=== PATIENT | female | born 1980 | race Caucasian/White ===

== ENCOUNTER 2016-10-02 14:58 | Observation (INO) | payer MEDICAID, SELFPAY ==
[2016-10-02 15:15] VITALS: BMI 17.8
--- NOTE | 2016-10-02 15:19 | EKG12_ITS ---
Test Reason : Blood Pressure : / mmHG Vent. Rate : 064 BPM Atrial Rate : 064 BPM P-R Int : 150 ms QRS Dur : 088 ms QT Int : 400 ms P-R-T Axes : 069 009 047 degrees QTc Int : 412 ms Normal sinus rhythm with sinus arrhythmia Normal ECG Confirmed by ERICA BRANDON, JOSÉ MIGUEL ([id number]), technical writer and editor ALESHIA ADRIAN ([id number]) on 10/11/2016 3:50:40 PM Referred By: KAREN Confirmed By:JOSÉ MIGUEL MALDONADO MD
[2016-10-02 15:21] VITALS: BMI 17.8
[2016-10-02 15:27] VITALS: BP 103/54; PULSE 66; RESP 18; TEMP 36.8
[2016-10-02] MEDS: cloNIDine HCl 0.1 MG Tablet PO ×3 (15:52→23:43)
[2016-10-02] MEDS: Dicyclomine 10 MG Capsule 20 MG PO ×2 (15:52→23:43)
[2016-10-02] MEDS: Buprenorphine HCl 2 MG TAB.SUBL SL ×2 (15:53→23:43)
[2016-10-02 16:10] LABS: Hematocrit 38.2 % (37-47); Hemoglobin 12.9 g/dl (12.0-15.0); Mean Corp Hgb Conc 33.8 g/gl (32-36); Mean Corpuscular Hgb 33.2 pg (27.0-32.0); Mean Corpuscular Volume 98.5 fL (81-99); Mean Platelet Vol. 12.4 fl (6.2-12.0); Platelet Count 152 K/mm3 (150-450); RBC Distribution Width CV 13.1 % (11.6-14.6); Red Blood Count 3.88 M/mm3 (4.2-5.4); White Blood Count 6.2 K/mm3 (4.4-11.0)
[2016-10-02 16:22] LABS: Scan Indicated on CBC? Y/N NO
[2016-10-02 16:25] VITALS: O2SAT 97
--- NOTE | 2016-10-02 16:33 | HP.PCM_ITS ---
History of Present Illness Date of Admission: 10/02/16 Chief Complaint: Acute opiate withdrawal The patient is a 36 year old female was referred from [facility] for acute opiate withdrawal. Patient reports muscle aches, fever/chills, nausea/diarrhea, no vomiting at this point. Overall feels very uncomfortable and jittery. Last dose of heroin IV-yesterday. Long-term heroin user. Reports mild headache, no shortness of breath, denies urinary complaints, no neuro complaints. Past medical history. Endometriosis. IBS with diarrhea. Migraines. Social history. Independent in her daily activities. Long-term heroin user. Smokes marijuana. He used to use cocaine-last time more than 10 years ago. Denies use of alcohol. Smokes about 1.5 packs per day. Family history. Not relevant to current presentation. Number Past Medical History Allergies No Known Allergies Allergy (Verified 10/02/16 15:38) Smoking Status: Current every day smoker . - As above Review of Systems Constitutional: Reports: Chills, Fever, Malaise, Weakness, Fatigue. Denies: Anorexia Eyes: Denies: Vision Change HEENT: Denies: Visual Changes Cardiovascular: Denies: Chest Pain, Chest Pressure, Chest Tightness, Edema, Light Headedness, Palpitations, Syncope Respiratory: Denies: Cough, Shortness of Breath, Wheezing Gastrointestinal: Reports: Abdominal Pain - Abdominal cramps, pain all over, Diarrhea, Nausea. Denies: Constipation, Dyspepsia, Hematemesis, Hematochezia, Melena, Vomiting Genitourinary: Denies: Dysuria, Hematuria, Hesitancy, Incontinence, Retention, Urgency Gynecological: Denies: Vaginal discharge, Vaginal itching Musculoskeletal: Reports: Joint Pain - All over, Muscle pain - All over. Denies : Joint stiffness, Joint swelling Skin: Denies: Dryness, Jaundice, Lesions Neurological: Denies: Balance problems, Blurred vision, Change in Speech, Slurred speech, Confusion, Difficulty swallowing, Focal weakness, Headaches, Incoordination, Numbness, Tingling, Tremor, Seizures Psychiatric: Denies: Anxiety, Depression, Suicidal Ideations Endocrine: Denies: Change in Body Habitus Hematologic/ Lymphatic: Denies: Adenopathy, Anemia, Easy Bruising, Hx of blood clot VTE Information - Inpt Only VTE Present on Admission: No Objective: General: Patient is sitting in bed. Awake, alert, oriented ?3. HEENT: Atraumatic, Normocephalic. Clear conjunctiva. Oral mucosa is moist. Neck: No nodules noted, no asymmetry. PERRLA. Skin: Clean, dry. No visible rashes. Noted tracks after having injections. No signs of ongoing infection. Lungs: clear to auscultation bilaterally. No wheezing. CVS: S1-S2 present, no murmurs appreciated, regular rate, good radial pulses. Abdomen: Soft, nontender, nondistended, bowel sounds present. No CVA tenderness. Extremities: No clubbing, No cyanosis. No visible deformities. No lower extremity edema. Psych/Mental Status: Appropriate and cooperative, noted that patient is somewhat jittery and anxious. Neuro: No focal neurological findings. - Physical Exam Vital Signs Temp Pulse Resp BP Pulse Ox 36.8 C 66 18 103/54 10/02/16 15:27 10/02/16 15:27 10/02/16 15:27 10/02/16 15:27 Oxygen Delivery Method Room Air Weight: 54.8 kg Body Mass Index (BMI) 17.8 Laboratory Tests Past 24 Hrs 10/02/16 10/02/16 15:40 15:40 WBC 6.2 RBC 3.88 L Hgb 12.9 Hct 38.2 MCV 98.5 MCH 33.2 H MCHC 33.8 RDW 13.1 RDW Differential 46.0 H Plt Count 152 MPV 12.4 H Sodium Pending Potassium Pending Chloride Pending Carbon Dioxide Pending Anion Gap Pending BUN Pending Creatinine Pending Est GFR (MDRD) Af Amer Pending Est GFR (MDRD) Non-Af Pending BUN/Creatinine Ratio Pending Glucose Pending Calcium Pending Assessment/Plan * Acute opiate withdrawal. Started on Buprenex withdrawal protocol. * Nicotine use disorder. Counseled on smoking cessation, nicotine replacement therapy with patch. * Polysubstance abuse. Patient does have arranged counseling as outpatient upon discharge. * DVT prophylaxis-patient is young female with low risk, recommended ambulation and knee/ankle exercises. Dragon Dictation.
[2016-10-02 16:34] LABS: Anion Gap 5 (5-15); BUN 6 mg/dL (7-18); BUN/Creat Ratio 9.1 RATIO (10-20); Calcium,Total 8.9 mg/dL (8.5-10.1); Chloride 107 mmol/L (98-107); Creatinine, Serum 0.66 mg/dL (0.55-1.02); EST Glomerular Filtration Rate 109 mL/min (>60); Est Glom Filt Rate - Afr Amer 132 mL/min (>60); Glucose 90 mg/dL (70-110); Potassium 3.5 mmol/L (3.5-5.1); Sodium Level 142 mmol/L (136-145)
[2016-10-02 20:15] VITALS: BP 99/56; PULSE 71; RESP 16; TEMP 36.9; O2SAT 97
[2016-10-02] MEDS: Methocarbamol 750 MG Tablet PO (20:30)
[2016-10-02 23:35] VITALS: BP 103/51; PULSE 74; RESP 16; TEMP 36.6
[2016-10-02 23:39] VITALS: O2SAT 98
[2016-10-03] VITALS (7 sets, daily range): BP systolic 84–103; BP diastolic 55–77; PULSE 74–90; RESP 16–18; TEMP 36.7–37.2; O2SAT 98–99
[2016-10-03] MEDS: cloNIDine HCl 0.1 MG Tablet PO ×7 (04:19→22:12)
[2016-10-03] MEDS: QUEtiapine 25 MG Tablet PO ×3 (04:19→19:01)
[2016-10-03] MEDS: Methocarbamol 750 MG Tablet PO ×3 (04:19→16:33)
[2016-10-03] MEDS: Dicyclomine 10 MG Capsule 20 MG PO ×3 (06:34→22:12)
[2016-10-03] MEDS: Buprenorphine HCl 2 MG TAB.SUBL SL ×2 (08:53→16:32)
[2016-10-03] MEDS: Pramipexole Di-HCl 0.125 MG Tablet PO ×2 (11:36→22:12)
--- NOTE | 2016-10-03 19:40 | PN_ITS ---
Subjective: Patient was seen and examined today, she is still having some diarrhea and some tremors, she is on a maximal amount of Bentyl that I can administer at this time , I cannot give her Imodium due to cross-reactivity with opiates, I explained this to her. Pepto-Bismol and Kaopectate is not available here. - Physical Exam General: Alert, Oriented x3, Cooperative, Well developed, Well nourished HEENT: Atraumatic, PERRLA, EOMI, Normocephalic Oral: Moist Mucosa Neck: Supple, No JVD, No Nuchal Rigidity, Trachea Midline, Thyroid Normal Size and Texture Lungs: Clear to auscultation, Normal air movement, No rhonchi, No wheeze, No rales Cardiovascular: Regular rate, Regular Rhythm, Normal S1, Normal S2, No murmurs, PMI Normal, No Gallop Abdomen: Bowel Sounds Present, Soft, Non Tender, Non-Distended Extremities: No clubbing, No cyanosis Skin: No rashes, No breakdown Neurological: Cranial nerves II-XII grossly intact, Neuro grossly intact, Sensory exam intact to light touch and pain, Coordination normal Psych/Mental Status: Flat Affect, Alert and oriented to time, place, person, mood and affect Vital Signs Temp Pulse Resp BP Pulse Ox 98.0 F 89 18 102/55 98 10/03/16 18:53 10/03/16 18:53 10/03/16 18:53 10/03/16 18:53 10/03/16 14:57 Oxygen Delivery Method Room Air Weight: 54.8 kg Body Mass Index (BMI) 17.8 Intake and Output for Last 24 Hours 10/01/16 10/02/16 10/03/16 23:59 23:59 23:59 Intake Total 100 950 Balance 100 950 Assessment/Plan #1 acute opiate withdrawal with diarrhea-continue Bentyl and medical stabilization program order set
[2016-10-03] MEDS: Acetaminophen 325 MG Tablet 650 MG PO (22:12)
[2016-10-04] MEDS: Buprenorphine HCl 2 MG TAB.SUBL SL ×3 (00:07→15:38)
[2016-10-04 05:30] VITALS: BP 94/51; PULSE 69; RESP 18; TEMP 36.5
[2016-10-04] MEDS: Methocarbamol 750 MG Tablet PO ×3 (05:34→22:54)
[2016-10-04] MEDS: Dicyclomine 10 MG Capsule 20 MG PO ×2 (05:34→22:54)
[2016-10-04] MEDS: Acetaminophen 325 MG Tablet 650 MG PO ×2 (05:34→22:54)
[2016-10-04] MEDS: QUEtiapine 25 MG Tablet PO ×2 (05:34→22:53)
[2016-10-04 07:30] VITALS: O2SAT 98
[2016-10-04 07:59] VITALS: BP 97/55; PULSE 65; RESP 18; TEMP 36.4
[2016-10-04] MEDS: Pramipexole Di-HCl 0.125 MG Tablet PO ×2 (08:10→22:53)
[2016-10-04] MEDS: cloNIDine HCl 0.1 MG Tablet PO ×2 (12:03→17:58)
--- NOTE | 2016-10-04 14:50 | NURSING ---
around noon pt given for prn meds for anxiety/sweating/and muscle aches-pt now asleep, will allow pt to rest and assess by 1600 when next dose of bup. due
--- NOTE | 2016-10-04 15:09 | CHAPLAIN ---
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; she shakes my hand and tells me that she and her boyfriend are users over last ten years; pt and her boyfriend are both in detox at this time but in different hospitals; pt is glad that they are doing this together at same time; pt says that other family do not support her or understand her addiction; pt also has a son of about 17 years old who does not live with her; pt says that she really wants to stop drugs and believes she can; pt says there is a plan in place for counseling when she is released; pt says that she does not have friends outside of boyfriend and does not have a job; pt speaks about finding a volunteer job at an animal care home as a good use of her time; she recognizes she says that she will need something to do to occupy her time; pt also agrees with suggestion that she would benefit from support from [employer] people in a mandaeism; pt said she attended mandaeism as a child and would like to do that again; pt is accepting of a prayer
[2016-10-04 15:35] VITALS: BP 91/63; PULSE 72; RESP 18; TEMP 36.6
[2016-10-04 15:36] VITALS: BP 91/63; PULSE 78; RESP 20; TEMP 36.6
[2016-10-04] MEDS: Ibuprofen 400 MG Tablet 800 MG PO (17:58)
[2016-10-04] MEDS: Loperamide 2 MG Capsule PO (17:58)
--- NOTE | 2016-10-04 18:13 | NURSING ---
pt experiencing anxiety and diarrhea-pt spoke with dr cordova, immodium, catapress and motrin given pt aware she still has other prn's available if this not helpful, there are other meds available, not to suffer in silence pt expresses anxiousness about recent argument on telephone who is withdrawaling at home, emotional support given she expressed family not very supportive and don't understand encouraged her to encourage family to attend support group meetings for families of addicts encouraged pt to follow through with therapy and be awre of triggers to use again living with someone that is still using heroin she expressed thanks for the conversation
--- NOTE | 2016-10-04 19:14 | PCM.PROGNOTE ---
Subjective: Patient was seen and examined today, she still having some diarrhea and I have decided to give her Imodium a.d. today. Patient also complains of some chronic back pain and I have decided to place her on 800 mg ibuprofen 3 times daily as needed. Patient still having some tremors but these are improved from yesterday. - Physical Exam General: Alert, Oriented x3, Cooperative, No apparent distress, Well developed, Well nourished HEENT: Atraumatic, PERRLA, EOMI, Normocephalic Oral: Moist Mucosa Neck: Supple, No JVD, Negative Carotid Bruits, No Nuchal Rigidity, Trachea Midline, Thyroid Normal Size and Texture Lungs: Clear to auscultation, Normal air movement, No rhonchi, No wheeze, No rales Cardiovascular: Regular rate, Regular Rhythm, Normal S1, Normal S2, No murmurs, No Ectopic Activity, PMI Normal, No rub noted, No Gallop Abdomen: Bowel Sounds Present, Soft, Non Tender, Non-Distended, No hernias noted Extremities: No clubbing, No cyanosis, No edema, Capillary Refill Less than 3 Seconds Skin: No rashes, No breakdown Musculoskeletal: No Tenderness to Palpation of Joints or Extremities Neurological: Cranial nerves II-XII grossly intact, Neuro grossly intact, Muscle tone normal, Sensory exam intact to light touch and pain, Coordination normal Psych/Mental Status: Normal Affect, Appropriate, Alert and oriented to time, place, person, mood and affect Vital Signs Temp Pulse Resp BP Pulse Ox 97.9 F 78 20 91/63 98 10/04/16 15:36 10/04/16 15:36 10/04/16 15:36 10/04/16 15:36 10/04/16 07:30 Oxygen Delivery Method Room Air Weight: 54.8 kg Body Mass Index (BMI) 17.8 Intake and Output for Last 24 Hours 10/02/16 10/03/16 10/04/16 23:59 23:59 23:59 Intake Total 000 063 0983 Balance 953 993 9749 Assessment/Plan #1 acute opiate withdrawal with diarrhea-continue Bentyl and medical stabilization program order set. Imodium a.d. ordered as needed #2 chronic low back pain with scoliosis according to patient-patient was placed on ibuprofen 800 mg 3 times daily as needed back pain
[2016-10-04 22:00] VITALS: BP 86/45; PULSE 67; RESP 16; TEMP 36.6; O2SAT 98
[2016-10-05 02:00] VITALS: BP 100/52; PULSE 56; RESP 16; TEMP 36.4
[2016-10-05] MEDS: Buprenorphine HCl 2 MG TAB.SUBL SL (03:56)
[2016-10-05] MEDS: Loperamide 2 MG Capsule PO (04:03)
[2016-10-05] MEDS: Ibuprofen 400 MG Tablet 800 MG PO (04:24)
[2016-10-05] MEDS: Methocarbamol 750 MG Tablet PO (04:24)
[2016-10-05 09:08] VITALS: BP 108/59; PULSE 66; RESP 16; TEMP 36.5; O2SAT 100
[2016-10-05 09:09] VITALS: BP 108/59; PULSE 66; RESP 16; TEMP 36.5
[2016-10-05] MEDS: Acetaminophen 325 MG Tablet 650 MG PO (09:19)
[2016-10-05] MEDS: QUEtiapine 25 MG Tablet PO (09:19)
[2016-10-05] MEDS: Pramipexole Di-HCl 0.125 MG Tablet PO (09:19)
--- NOTE | 2016-10-05 11:25 | PCM.DC ---
Discharge Diet: No Restrictions Discharge Activity: Return to Normal Activity Allergies/Adverse Reactions: Allergies No Known Allergies Allergy (Verified 10/02/16 15:38) Please Follow Up With: [facility] as directed
--- NOTE | 2016-10-11 20:06 | PCM.DC.SUM ---
Discharge Date and Diagnosis Date of Admission: 10/02/16 Date of Discharge: 10/05/16 - Primary Discharge Diagnosis #1 opiate withdrawal #2 chronic low back pain Hospital Course and Treatment Operations: None Procedures: None Summary of Care Provided: The patient is a 36 year old F was admitted directly into the medical stabilization program at [facility] for opiate withdrawal. Order sets from the medical stabilization program at [facility] was utilized, there were no major complications during the patient's hospital stay. On 10/05/16, patient was seen and examined and felt to be in stable condition for discharge home Discharge Diet: No Restrictions Discharge Activity: Return to Normal Activity Please Follow Up With: [facility] as directed Disposition: Home Minutes spent on discharge:: 25 Patient Condition:: Stable Meaningful Use Info Meaningful Use Diagnoses (Choose all that apply): None applicable
== END 2016-10-05 11:30 | disposition home or self-care (01) | DRG 773 ==
LOC: MS2 01-21 15:39
PROVIDERS: Admitting Provider Internal Medicine; Visit Provider Internal Medicine
DX: F11.23 Opioid dependence with withdrawal (principal); G89.29 Other chronic pain; M54.5 Low back pain; F12.90 Cannabis use, unspecified, uncomplicated; F19.10 Other psychoactive substance abuse, uncomplicated; M41.9 Scoliosis, unspecified; K58.0 Irritable bowel syndrome with diarrhea; F17.200 Nicotine dependence, unspecified, uncomplicated
CPT/HCPCS: 80048; 85027; 93005; 99218; 99406; G0378; G0379

== ENCOUNTER 2017-05-17 14:10 | Observation (INO) | payer MEDICAID, SELFPAY ==
[2017-05-17 14:30] VITALS: BP 97/51; PULSE 60; RESP 18; TEMP 36.9
[2017-05-17 14:39] VITALS: BMI 18.7
[2017-05-17 14:48] VITALS: BP 97/51; PULSE 60; RESP 18; TEMP 36.9; O2SAT 100
--- NOTE | 2017-05-17 15:53 | HP.PCM_ITS ---
Problem List (1) Opioid use with withdrawal Status: Acute (2) Nicotine dependence Status: Chronic History of Present Illness Date of Admission: 05/17/17 Chief Complaint: Opioid withdrawal The patient is a 37 year old F with history of opioid abuse, admitted for [facility] medical stabilization treatment for withdrawal. She uses IV heroin 2 gram a day, last use is about 48 hours ago. She has some abdominal cramping and shakiness, along with diarrhea. Otherwise, she is doing fairly well. She was treated for the same problems in September 2016. She remained clean for 2 to 3 month after the intervention, but relapsed. Past Medical History Past Medical History (Chronic Problems): Chronic Problems Nicotine dependence (Chronic) Allergies No Known Allergies Allergy (Verified 10/02/16 15:38) Home Medications: Ambulatory Orders Medication Instructions Recorded NK [NK] 05/17/17 Surgical History: - - D&C. 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 Review of Systems Comment: ROS: In general: Patient has been in good health, denied of any constitutional symptoms, such as weight loss, or gain, fever, chills, or night sweats. Patient denied of any profound fatigue. HEENT: Unremarkable. Patient denied of any dizziness, chronic headache, blurred vision, double vision, dry mouth, or nasal congestion. CV/respiratory: There is no exertional shortness of breath, chest pain, palpitation, wheezing, cough, claudication, cold feet, or peripheral edema. GI: See HPI. : Patient denied any significant urinary symptoms. Neurology: Unremarkable. There is no history of seizure as an adult. Psychological: See HPI. Endocrine: Unremarkable. Musculoskeletal: Unremarkable. VTE Information - Inpt Only VTE Present on Admission: No VTE Mechan Device Prophylaxis: None VTE Pharm Prophylaxis ordered?: No Reason prophylaxis not ordered:: Treatment Not Indicated Patient Problems: Active and Suspected Problems Opioid use with withdrawal (Acute) Objective: In general, patient is a well-nourished and developed adult. Alert and oriented x 3. HEENT: Head is atraumatic, and normocephalic. Pupils are equal, round, and reactive to light and accommodations. Neck is supple. There is no lymphadenopathy, or thyromegaly. Oral mucosa is pink, and moist. There are no lesions. Heart: Auscultation is normal with regular rhythm and rate. There is no extra heart sounds, or murmurs. S1 and S2 are present. Point of maximal impulse is not displaced. Lungs: Lungs are clear to auscultation bilaterally. There is no wheezing, or crackles. Abdomen: Abdominal wall is non-tender, and non-distended. There is no palpable mass or organomegaly. Normoactive bowel sounds are present. Extremities: There is no cyanosis or clubbing. Peripheral pulses are palpable. There is no edema. Skin: There are no any skin discoloration or lesions. Neurological: CN II - XII are intact. Sensory and motor functions are grossly normal with no obvious deficit. Cerebellar functions are within normal range. Gait was not tested. +mild tremor. - Physical Exam Vital Signs Temp Pulse Resp BP Pulse Ox 98.4 F 60 18 97/51 L 100 05/17/17 14:48 05/17/17 14:48 05/17/17 14:48 05/17/17 14:48 05/17/17 14:48 Oxygen Delivery Method Room Air Weight: 123 lb Body Mass Index (BMI) 18.7 Assessment/Plan Active and Suspected Problems Opioid use with withdrawal (Acute) The patient is a 37 year old F with history of opioid abuse, admitted for [facility] medical stabilization treatment for withdrawal. She uses IV heroin 2 gram a day, last use is about 48 hours ago. She has some abdominal cramping and shakiness, along with diarrhea. Otherwise, she is doing fairly well. She was treated for the same problems in September 2016. She remained clean for 2 to 3 month after the intervention, but relapsed. #1 Opioid withdrawal. Start medical stabilization protocol. #2 Nicotine dependency. Provide nicotine patch. VTE prophylaxis: none for low risk patient. GI prophylaxis: H2 donal po. Patient is full code. Disposition: Per [facility]. Code Visit Inpatient E&M: 57845 Init Hosp L2
[2017-05-17] MEDS: Buprenorphine HCl 2 MG TAB.SUBL SL ×2 (16:29→23:42)
[2017-05-17] MEDS: Dicyclomine 10 MG Capsule 20 MG PO ×2 (16:29→23:45)
[2017-05-17] MEDS: cloNIDine HCl 0.1 MG Tablet PO ×4 (16:29→23:41)
[2017-05-17] MEDS: Methocarbamol 750 MG Tablet PO ×2 (16:30→23:40)
[2017-05-17] MEDS: chlordiazePOXIDE 25 MG Capsule PO ×4 (16:30→23:41)
[2017-05-17] MEDS: Pramipexole Di-HCl 0.25 MG Tablet PO (16:32)
[2017-05-17 16:34] LABS: Absolute Lymphocyte Count 2.96 X10^3/ul (0.83-4.51); Absolute Neutrophil Count 1.7 X10^3/uL (2.0-7.7); Basophil# 0.12 X10^3/uL; Basophil% 2.1 % (0-1); Eosinophil# 0.45 X10^3/uL; Eosinophils% 7.9 % (0-5); Hematocrit 35.6 % (37-47); Hemoglobin 11.9 g/dl (12.0-15.0); Lymphocyte # 2.96 X10^3/ul (4.0); Lymphocyte % 52.1 % (19-41); Mean Corp Hgb Conc 33.4 g/gl (32-36); Mean Corpuscular Hgb 33.3 pg (27.0-32.0); Mean Corpuscular Volume 99.7 fL (81-99); Mean Platelet Vol. 11.9 fl (6.2-12.0); Monocyte# 0.47 X10^3/uL; Monocyte% 8.3 % (0-10); Neutrophil # 1.67 X10^3/uL (2.7-7.7); Neutrophil % 29.4 % (47-70); Platelet Count 141 K/mm3 (150-450); RBC Distribution Width CV 13.4 % (11.6-14.6); RBC Distribution Width SD 48.2 fl (35.1-43.9); Red Blood Count 3.57 M/mm3 (4.2-5.4); White Blood Count 5.7 K/mm3 (4.4-11.0)
[2017-05-17 16:36] LABS: POSITIVE COUNT NO; POSITIVE DIFFERENTIAL NO; POSITIVE MORPHOLOGY NO
[2017-05-17 16:42] LABS: ALB/GLOB Ratio 0.9 RATIO (0.9-2.4); AST(SGOT) 23 U/L (15-37); Alanine Aminotransfer ALT/SGPT 22 U/L (12-78); Albumin, Serum 3.2 g/dL (3.4-5.0); Alkaline Phosphatase 74 U/L (45-117); Anion Gap 5 (5-15); BUN 10 mg/dL (7-18); BUN/Creat Ratio 15.2 RATIO (10-20); Calcium,Total 8.5 mg/dL (8.5-10.1); Chloride 105 mmol/L (98-107); Creatinine, Serum 0.66 mg/dL (0.55-1.02); EST Glomerular Filtration Rate 108 mL/min (>60); Est Glom Filt Rate - Afr Amer 131 mL/min (>60); Estimated Creatinine Clearance 104.79 ml/min; Globulin 3.4 g/dL (2.2-4.2); Glucose 110 mg/dL (70-110); Potassium 3.5 mmol/L (3.5-5.1); Protein, Total 6.6 g/dL (6.4-8.2); Sodium Level 140 mmol/L (136-145)
[2017-05-17 17:56] VITALS: BP 103/72; PULSE 71; RESP 16; TEMP 36.6
[2017-05-17] MEDS: QUEtiapine 25 MG Tablet PO (18:43)
[2017-05-17] MEDS: Acetaminophen 325 MG Tablet 650 MG PO (18:59)
[2017-05-17] MEDS: Famotidine 20 MG Tablet PO (21:07)
[2017-05-17 23:36] VITALS: BP 126/61; PULSE 56; RESP 16; TEMP 36.7; O2SAT 100
[2017-05-17 23:38] VITALS: BP 126/61; PULSE 56; RESP 16; TEMP 36.7
[2017-05-17] MEDS: traZODone 50 MG Tablet PO (23:40)
[2017-05-17] MEDS: Ibuprofen 600 MG Tablet PO (23:45)
[2017-05-18] VITALS (9 sets, daily range): BP systolic 108–118; BP diastolic 57–72; PULSE 44–65; RESP 16–18; TEMP 36.6–37.1; O2SAT 97–99
[2017-05-18] MEDS: QUEtiapine 25 MG Tablet PO ×2 (03:50→22:02)
[2017-05-18] MEDS: chlordiazePOXIDE 25 MG Capsule PO ×4 (03:50→14:19)
[2017-05-18 07:15] LABS: Absolute Lymphocyte Count 1.95 X10^3/ul (0.83-4.51); Absolute Neutrophil Count 2.6 X10^3/uL (2.0-7.7); Basophil# 0.07 X10^3/uL; Basophil% 1.4 % (0-1); Eosinophil# 0.17 X10^3/uL; Eosinophils% 3.3 % (0-5); Hematocrit 38.8 % (37-47); Hemoglobin 12.8 g/dl (12.0-15.0); Lymphocyte # 1.95 X10^3/ul (4.0); Lymphocyte % 37.8 % (19-41); Mean Corpuscular Hgb 32.6 pg (27.0-32.0); Mean Corpuscular Volume 98.7 fL (81-99); Mean Platelet Vol. 12.2 fl (6.2-12.0); Monocyte# 0.33 X10^3/uL; Monocyte% 6.4 % (0-10); Neutrophil # 2.64 X10^3/uL (2.7-7.7); Neutrophil % 51.1 % (47-70); Platelet Count 156 K/mm3 (150-450); RBC Distribution Width CV 13.5 % (11.6-14.6); RBC Distribution Width SD 48.6 fl (35.1-43.9); Red Blood Count 3.93 M/mm3 (4.2-5.4); White Blood Count 5.2 K/mm3 (4.4-11.0)
[2017-05-18 07:23] LABS: POSITIVE COUNT NO; POSITIVE DIFFERENTIAL NO; POSITIVE MORPHOLOGY NO
[2017-05-18 07:38] LABS: Anion Gap 5 (5-15); BUN 7 mg/dL (7-18); BUN/Creat Ratio 10.2 RATIO (10-20); Chloride 112 mmol/L (98-107); Creatinine, Serum 0.68 mg/dL (0.55-1.02); EST Glomerular Filtration Rate 104 mL/min (>60); Est Glom Filt Rate - Afr Amer 126 mL/min (>60); Glucose 105 mg/dL (70-110); Sodium Level 142 mmol/L (136-145)
[2017-05-18] MEDS: Ibuprofen 600 MG Tablet PO ×2 (08:05→16:13)
[2017-05-18] MEDS: Methocarbamol 750 MG Tablet PO ×3 (08:05→22:02)
[2017-05-18] MEDS: Pramipexole Di-HCl 0.25 MG Tablet PO (08:06)
[2017-05-18] MEDS: Famotidine 20 MG Tablet PO ×2 (08:07→22:02)
[2017-05-18] MEDS: Buprenorphine HCl 2 MG TAB.SUBL SL ×2 (08:10→16:07)
[2017-05-18] MEDS: Dicyclomine 10 MG Capsule 20 MG PO ×2 (11:13→22:02)
[2017-05-18] MEDS: Acetaminophen 325 MG Tablet 650 MG PO (11:13)
[2017-05-18] MEDS: cloNIDine HCl 0.1 MG Tablet PO ×3 (11:14→22:02)
--- NOTE | 2017-05-18 12:16 | PN_ITS ---
Patient Problems: Active and Suspected Problems Opioid use with withdrawal (Acute) Subjective: Patient is a 37-year-old female with a history of narcotic abuse who presented to the [facility] office requesting admission for medical stabilization for opiate withdrawal. Admitted to using 2 g of heroin a day stated her last use was 48 hours prior to presenting to the [facility] office. She complained of abdominal cramping, tremulousness and diarrhea. She was also admitted to [facility] in September 2016 for opiate addiction/medical stabilization for opiate withdrawal. CBC and CMP are unremarkable. LFTs are within normal limits. does not share needles. Has never had a hepatitis panel to her knowledge. Was clean for 3 months after the last admission to [facility]. Went back to regular using when she thought she could use it only once. Significant other is also a heroin addict. Has been through program here and left AMA. He is being discharged from [facility] today. she has 1 child but he is 18 and is in college. She complains that she was unable to sleep last night. No vomiting. No diarrhea today. - Physical Exam General: Alert, Oriented x3, Cooperative, No apparent distress HEENT: Atraumatic, PERRLA, EOMI, Normocephalic Oral: Moist Mucosa, No Gingival or Mucosal Lesions/ Ulcerations Neck: Supple, No Nodes, No Nuchal Rigidity, Trachea Midline Lungs: Clear to auscultation Cardiovascular: Regular rate, Regular Rhythm, Normal S1, Normal S2, No Gallop Abdomen: Bowel Sounds Present, Soft, Non Tender, Non-Distended Extremities: No clubbing, No cyanosis Neurological: Cranial nerves II-XII grossly intact, Neuro grossly intact Psych/Mental Status: Normal Affect, Appropriate Vital Signs Temp Pulse Resp BP Pulse Ox 98.7 F 65 18 108/58 L 97 05/18/17 11:16 05/18/17 11:16 05/18/17 11:16 05/18/17 11:16 05/18/17 11:06 Oxygen Delivery Method Room Air Weight: 123 lb 0.005 oz Body Mass Index (BMI) 18.7 Intake and Output for Last 24 Hours 05/16/17 05/17/17 05/18/17 23:59 23:59 23:59 Intake Total 600 / 600 100 / 100 Balance 600 / 600 100 / 100 Laboratory Tests Past 24 Hrs 05/17/17 05/17/17 05/18/17 16:11 16:11 06:40 WBC 5.7 5.2 RBC 3.57 L 3.93 L Hgb 11.9 L 12.8 Hct 35.6 L 38.8 MCV 99.7 H 98.7 MCH 33.3 H 32.6 H MCHC 33.4 33.0 RDW 13.4 13.5 RDW Differential 48.2 H 48.6 H Plt Count 141 L 156 MPV 11.9 12.2 H Immature Gran % (Auto) 0.200 0.000 Neut % (Auto) 29.4 L 51.1 Lymph % (Auto) 52.1 H 37.8 Isabela % (Auto) 8.3 6.4 Eos % (Auto) 7.9 H 3.3 Baso % (Auto) 2.1 H 1.4 H Absolute Neuts (auto) 1.7 L 2.6 Absolute Lymphs (auto) 2.96 1.95 Total Counted Not Reportable Not Reportable Sodium 140 Potassium 3.5 Chloride 105 Carbon Dioxide 30.0 Anion Gap 5 BUN 10 Creatinine 0.66 Estim Creat Clear Calc 104.79 Est GFR (MDRD) Af Amer 131 Est GFR (MDRD) Non-Af 108 BUN/Creatinine Ratio 15.2 Glucose 110 Calcium 8.5 Total Bilirubin 0.30 AST 23 ALT 22 Alkaline Phosphatase 74 Total Protein 6.6 Albumin 3.2 L Globulin 3.4 Albumin/Globulin Ratio 0.9 05/18/17 06:40 WBC RBC Hgb Hct MCV MCH MCHC RDW RDW Differential Plt Count MPV Immature Gran % (Auto) Neut % (Auto) Lymph % (Auto) Isabela % (Auto) Eos % (Auto) Baso % (Auto) Absolute Neuts (auto) Absolute Lymphs (auto) Total Counted Sodium 142 Potassium 4.0 Chloride 112 H Carbon Dioxide 25.0 Anion Gap 5 BUN 7 Creatinine 0.68 Estim Creat Clear Calc 101.70 Est GFR (MDRD) Af Amer 126 Est GFR (MDRD) Non-Af 104 BUN/Creatinine Ratio 10.2 Glucose 105 Calcium 9.0 Total Bilirubin AST ALT Alkaline Phosphatase Total Protein Albumin Globulin Albumin/Globulin Ratio Assessment/Plan Active and Suspected Problems Opioid use with withdrawal (Acute) Impressions 1. acute opiate withdrawal 2. RLS continue [facility] Protocol Increase the Trazodone dose to 150 mg Q HS. Plans on OP tx at [facility] Code Visit Inpatient E&M: 94656 Subs Hosp L2
[2017-05-18] MEDS: traZODone 50 MG Tablet 150 MG PO (22:03)
[2017-05-19] VITALS (8 sets, daily range): BP systolic 95–117; BP diastolic 44–61; PULSE 46–64; RESP 14–18; TEMP 36.6–36.9; O2SAT 99
[2017-05-19] MEDS: Buprenorphine HCl 2 MG TAB.SUBL SL ×3 (00:03→20:12)
[2017-05-19] MEDS: Acetaminophen 325 MG Tablet 650 MG PO ×2 (06:07→20:24)
[2017-05-19] MEDS: Methocarbamol 750 MG Tablet PO ×2 (06:08→17:28)
[2017-05-19] MEDS: QUEtiapine 25 MG Tablet PO ×2 (06:08→20:24)
[2017-05-19 07:08] LABS: HEPATITIS B SURFACE AG Negative (Negative); Hepatitis A AB, Total Negative (Negative); Hepatitis A IgM Antibody Negative (Negative); Hepatitis B Core AB IgM Negative (Negative); Hepatitis B Core Ab Total Negative (Negative); Hepatitis C Ab <0.1 s/co ratio (0.0-0.9)
[2017-05-19 07:50] LABS: Absolute Neutrophil Count 3.5 X10^3/uL (2.0-7.7); Basophil# 0.06 X10^3/uL; Eosinophil# 0.11 X10^3/uL; Eosinophils% 1.8 % (0-5); Hematocrit 38.2 % (37-47); Hemoglobin 12.6 g/dl (12.0-15.0); Lymphocyte % 35.1 % (19-41); Mean Corpuscular Hgb 32.5 pg (27.0-32.0); Mean Corpuscular Volume 98.5 fL (81-99); Mean Platelet Vol. 12.8 fl (6.2-12.0); Monocyte# 0.39 X10^3/uL; Monocyte% 6.2 % (0-10); Neutrophil % 55.9 % (47-70); Platelet Count 158 K/mm3 (150-450); RBC Distribution Width CV 13.5 % (11.6-14.6); RBC Distribution Width SD 48.1 fl (35.1-43.9); Red Blood Count 3.88 M/mm3 (4.2-5.4); White Blood Count 6.3 K/mm3 (4.4-11.0)
[2017-05-19 07:52] LABS: POSITIVE COUNT NO; POSITIVE DIFFERENTIAL NO; POSITIVE MORPHOLOGY NO
[2017-05-19 08:26] LABS: BUN 14 mg/dL (7-18); Creatinine, Serum 0.75 mg/dL (0.55-1.02); Estimated Creatinine Clearance 92.21 ml/min; Glucose 96 mg/dL (70-110)
[2017-05-19 08:27] LABS: Anion Gap 7 (5-15); BUN/Creat Ratio 18.6 RATIO (10-20); Calcium,Total 8.8 mg/dL (8.5-10.1); Chloride 110 mmol/L (98-107); EST Glomerular Filtration Rate 93 mL/min (>60); Est Glom Filt Rate - Afr Amer 113 mL/min (>60); Potassium 3.7 mmol/L (3.5-5.1); Sodium Level 142 mmol/L (136-145)
[2017-05-19 08:53] LABS: HIV 1/0/2 SCREEN 4TH GEN Non Reactive (Non Reactive); Hep B Surface Antibodies Non Reactive (.)
[2017-05-19] MEDS: Famotidine 20 MG Tablet PO ×2 (08:53→21:47)
--- NOTE | 2017-05-19 09:31 | PN_ITS ---
Patient Problems: Active and Suspected Problems Opioid use with withdrawal (Acute) Subjective: Remains afebrile with stable vital signs. Pulse ox is 99% on room air while awake. She is bradycardic today with a heart rate in the 40s. she is c/o RLS.....can not have Clonidine due to a low BP and bradycardia. She is c/o RLS and also lightheadedness and weakness. States the Librium helps with the leg cramping and restlessness. No nausea, vomiting, diarrhea, abdominal pain today. She looks much more comfortable today and is very alert and cooperative. Slept somewhat better last night with the increase in the dose of the Trazodone - Physical Exam General: Alert, Oriented x3, Cooperative, - - restless, moving her legs constantly Oral: Moist Mucosa Lungs: Clear to auscultation, No rhonchi, No wheeze, No rales Cardiovascular: Regular rate, Regular Rhythm, Normal S1, Normal S2 Abdomen: Bowel Sounds Present, Soft, Non Tender, Non-Distended Extremities: No edema, - - moving legs constantly and can not get comfortable Skin: No rashes Vital Signs Temp Pulse Resp BP Pulse Ox 98.1 F 48 L 14 95/52 L 99 05/19/17 08:44 05/19/17 08:44 05/19/17 08:44 05/19/17 08:44 05/19/17 08:43 Oxygen Delivery Method Room Air Weight: 123 lb 0.005 oz Body Mass Index (BMI) 18.7 Intake and Output for Last 24 Hours 05/17/17 05/18/17 05/19/17 23:59 23:59 23:59 Intake Total 600 / 600 100 / 100 1140 / 1140 Balance 600 / 600 100 / 100 1140 / 1140 Laboratory Tests Past 24 Hrs 05/18/17 05/19/17 05/19/17 12:55 07:07 07:07 WBC 6.3 RBC 3.88 L Hgb 12.6 Hct 38.2 MCV 98.5 MCH 32.5 H MCHC 33.0 RDW 13.5 RDW Differential 48.1 H Plt Count 158 MPV 12.8 H Immature Gran % (Auto) 0.000 Neut % (Auto) 55.9 Lymph % (Auto) 35.1 [place] % (Auto) 6.2 Eos % (Auto) 1.8 Baso % (Auto) 1.0 Absolute Neuts (auto) 3.5 Absolute Lymphs (auto) 2.20 Total Counted Not Reportable Sodium 142 Potassium 3.7 Chloride 110 H Carbon Dioxide 25.0 Anion Gap 7 BUN 14 Creatinine 0.75 Estim Creat Clear Calc 92.21 Est GFR (MDRD) Af Amer 113 Est GFR (MDRD) Non-Af 93 BUN/Creatinine Ratio 18.6 Glucose 96 Calcium 8.8 Hepatitis A IgM Ab Negative Hepatitis A Ab Total Negative Hep Bs Antigen Negative Hep B Core Total Ab Negative Hep B Core IgM Ab Negative Hepatitis C Ab Confirm <0.1 Hepatitis C Comment Comment HIV 1&2 Ag/Ab, 4th Gen Non Reactive Assessment/Plan Active and Suspected Problems Opioid use with withdrawal (Acute) Impressions 1. acute opiate withdrawal 2. RLS - worse with the discontinuation of the scheduled Librium 3. Bradycardia and hypotension with Clonidine - will DC continue [facility] Protocol Continue Trazodone 150 mg Q HS. Start a Librium taper and DC the PRN Librium....was also using Xanax and RLS is bad. no hallucinations Code Visit Inpatient E&M: 87909 Subs Hosp L2
--- NOTE | 2017-05-19 11:12 | NURSING ---
pharmacy called at this time to request for librium to be verified. Courtney states she would look into.
--- NOTE | 2017-05-19 11:43 | NURSING ---
Patient reports that circular 21mcg nicotene patches (red lettering on package) are much more effective than the clear rectangle ones. Patient states that she was in the [facility] and was kicked out due to going outside to smoke. She states these patches are so effective that she doesn't even think about smoking. This RN attempted to check accudose for nicoderm patch patient requested. Unable to locate. This RN called [facility] in pharmacy and requested circular patches from pharmacy- same was sent to unit and applied to patient per order.
[2017-05-19] MEDS: chlordiazePOXIDE 25 MG Capsule 50 MG PO ×2 (12:17→17:28)
[2017-05-19] MEDS: Dicyclomine 10 MG Capsule 20 MG PO (17:28)
[2017-05-19] MEDS: Pramipexole Di-HCl 0.25 MG Tablet PO (20:24)
[2017-05-19] MEDS: traZODone 50 MG Tablet 150 MG PO (21:48)
[2017-05-19] MEDS: 0.9% Normal Saline 1,000 ML 999 ML IV (23:13)
[2017-05-20 00:14] VITALS: BP 112/64; PULSE 45; RESP 16; TEMP 36.8
[2017-05-20] MEDS: chlordiazePOXIDE 25 MG Capsule 50 MG PO ×2 (00:16→05:59)
[2017-05-20] MEDS: Ibuprofen 600 MG Tablet PO ×2 (00:16→10:40)
[2017-05-20] MEDS: Methocarbamol 750 MG Tablet PO ×2 (00:16→10:40)
[2017-05-20] MEDS: Ondansetron ODT 4 MG Tablet PO (04:39)
[2017-05-20 06:00] VITALS: BP 120/63; PULSE 46; RESP 16; TEMP 36.7
[2017-05-20 06:03] VITALS: BP 120/63; PULSE 46; RESP 16; TEMP 36.7; O2SAT 100
[2017-05-20] MEDS: Dicyclomine 10 MG Capsule 20 MG PO (06:15)
[2017-05-20 07:49] VITALS: BP 116/66; PULSE 50; RESP 16; TEMP 36.8; O2SAT 98
[2017-05-20 07:51] VITALS: BP 116/66; PULSE 50; RESP 16; TEMP 36.8
[2017-05-20] MEDS: Buprenorphine HCl 2 MG TAB.SUBL SL (07:54)
--- NOTE | 2017-05-20 10:05 | PCM.DC ---
- Discharge Diagnoses Current Active Problems: Current Active and Chronic Problems Opioid use with withdrawal (Acute) Nicotine dependence (Chronic) You will use the following diet at home:: No restrictions Your food should be the consistency of: Regular Your liquids should be the consistency of: Regular/Thin Discharge Activity: Return to Normal Activity Call your doctor if you observe: Fever of 101 or Higher, Shortness of breath, Dizziness, Fainting spells Additional Instructions: I have given you a prescription for Phenergan tablets. This medication is for nausea and you can take 1/2 to 1 tablet every 6 hours as needed for nausea and vomiting. You have done this before and had success for 3 months. You can do it again. Many addicts think they can occasionally use BUT, this is universally unsuccessful and almost always leads to recurrent addiction. You have learned a valuable lesson! You can also not hang out with friends/family who are using and expect to stay clean. Stay away from other addicts who are still using. Many people have to go through rehab again to finally get clean and stay clean.......do not look at this as a failure.......it is a learning experience. Keep your appt tomorrow at 9 AM and good luck to you. Allergies/Adverse Reactions: Allergies No Known Allergies Allergy (Verified 10/02/16 15:38) Medications to take at Discharge ProMETHAzine [Phenergan] 25 mg PO Q6H PRN PRN #10 tab 05/20/17 The following prescriptions were given: ProMETHAzine [Phenergan] 25 mg PO Q6H PRN PRN #10 tab PRN Reason: Nausea/Vomiting Primary Care Physician: Care Physician,No Primary [Primary Care Provider] - Proposed Discharge Date: 05/20/17
--- NOTE | 2017-05-20 10:14 | PCM.DC.SUM ---
Discharge Date and Diagnosis - Problem List Patient Problems: Active and Suspected Problems Bradycardia (Acute) Hypotension (Acute) Opioid use with withdrawal (Acute) Date of Admission: 05/17/17 Date of Discharge: 05/20/17 - Primary Discharge Diagnosis Active and Suspected Problems acute opiate withdrawal Bradycardia (Acute) Hypotension (Acute) - Secondary Discharge Diagnosis Chronic Problems Heroin addiction (Chronic) Nicotine dependence (Chronic) Hospital Course and Treatment Imaging Results: Laboratory Tests 05/17/17 05/17/17 05/18/17 16:11 16:11 06:40 WBC 5.7 5.2 RBC 3.57 L 3.93 L Hgb 11.9 L 12.8 Hct 35.6 L 38.8 MCV 99.7 H 98.7 MCH 33.3 H 32.6 H MCHC 33.4 33.0 RDW 13.4 13.5 RDW Differential 48.2 H 48.6 H Plt Count 141 L 156 MPV 11.9 12.2 H Immature Gran % (Auto) 0.200 0.000 Neut % (Auto) 29.4 L 51.1 Lymph % (Auto) 52.1 H 37.8 [place] % (Auto) 8.3 6.4 Eos % (Auto) 7.9 H 3.3 Baso % (Auto) 2.1 H 1.4 H Absolute Neuts (auto) 1.7 L 2.6 Absolute Lymphs (auto) 2.96 1.95 Total Counted Not Reportable Not Reportable Sodium 140 Potassium 3.5 Chloride 105 Carbon Dioxide 30.0 Anion Gap 5 BUN 10 Creatinine 0.66 Estim Creat Clear Calc 104.79 Est GFR (MDRD) Af Amer 131 Est GFR (MDRD) Non-Af 108 BUN/Creatinine Ratio 15.2 Glucose 110 Calcium 8.5 Total Bilirubin 0.30 AST 23 ALT 22 Alkaline Phosphatase 74 Total Protein 6.6 Albumin 3.2 L Globulin 3.4 Albumin/Globulin Ratio 0.9 Hepatitis A IgM Ab Hepatitis A Ab Total Hep Bs Antigen Hep B Core Total Ab Hep B Core IgM Ab Hepatitis C Ab Confirm Hepatitis C Comment HIV 1&2 Ag/Ab, 4th Gen 05/18/17 05/18/17 05/19/17 06:40 12:55 07:07 WBC 6.3 RBC 3.88 L Hgb 12.6 Hct 38.2 MCV 98.5 MCH 32.5 H MCHC 33.0 RDW 13.5 RDW Differential 48.1 H Plt Count 158 MPV 12.8 H Immature Gran % (Auto) 0.000 Neut % (Auto) 55.9 Lymph % (Auto) 35.1 [place] % (Auto) 6.2 Eos % (Auto) 1.8 Baso % (Auto) 1.0 Absolute Neuts (auto) 3.5 Absolute Lymphs (auto) 2.20 Total Counted Not Reportable Sodium 142 Potassium 4.0 Chloride 112 H Carbon Dioxide 25.0 Anion Gap 5 BUN 7 Creatinine 0.68 Estim Creat Clear Calc 101.70 Est GFR (MDRD) Af Amer 126 Est GFR (MDRD) Non-Af 104 BUN/Creatinine Ratio 10.2 Glucose 105 Calcium 9.0 Total Bilirubin AST ALT Alkaline Phosphatase Total Protein Albumin Globulin Albumin/Globulin Ratio Hepatitis A IgM Ab Negative Hepatitis A Ab Total Negative Hep Bs Antigen Negative Hep B Core Total Ab Negative Hep B Core IgM Ab Negative Hepatitis C Ab Confirm <0.1 Hepatitis C Comment Comment HIV 1&2 Ag/Ab, 4th Gen Non Reactive 05/19/17 07:07 WBC RBC Hgb Hct MCV MCH MCHC RDW RDW Differential Plt Count MPV Immature Gran % (Auto) Neut % (Auto) Lymph % (Auto) Hunt % (Auto) Eos % (Auto) Baso % (Auto) Absolute Neuts (auto) Absolute Lymphs (auto) Total Counted Sodium 142 Potassium 3.7 Chloride 110 H Carbon Dioxide 25.0 Anion Gap 7 BUN 14 Creatinine 0.75 Estim Creat Clear Calc 92.21 Est GFR (MDRD) Af Amer 113 Est GFR (MDRD) Non-Af 93 BUN/Creatinine Ratio 18.6 Glucose 96 Calcium 8.8 Total Bilirubin AST ALT Alkaline Phosphatase Total Protein Albumin Globulin Albumin/Globulin Ratio Hepatitis A IgM Ab Hepatitis A Ab Total Hep Bs Antigen Hep B Core Total Ab Hep B Core IgM Ab Hepatitis C Ab Confirm Hepatitis C Comment HIV 1&2 Ag/Ab, 4th Gen none Operations: None Procedures: None Summary of Care Provided: Patient is a 37-year-old female with a history of narcotic abuse who presented to the [facility] office requesting admission for medical stabilization for opiate withdrawal. Admitted to using 2 g of IV heroin a day. Stated her last use was 48 hours prior to presenting to the [facility] office. She complained of abdominal cramping, tremulousness and diarrhea. She had been admitted to [facility] in September of 2016 for opiate addiction/medical stabilization for opiate withdrawal. She was clean for 3 months after the September admission to [facility]. She went back to regular using when she thought she could use it only once. Significant other is also a heroin addict. He has been through the [facility] program at [facility] and left AMA. He was discharged from [facility] detox program on 05/17/17. CBC and CMP were unremarkable. LFTs were within normal limits. Hepatitis panel and the HIV were negative. She did not eat or drink much in the hospital and states she has no appetite when going though withdrawal. She had IV fluids on the day of admission for lightheadedness and a low BP. BP and HR after fluids were WNL. She was given a prescription for Phenergan at [place] to use as needed for nausea and vomiting. she has an appt scheduled for Sunday morning for intake. This note was generated with [employer] dictation software. It may contain incorrect words, spelling, and punctuation that were not noted in checking the note before signing. Discharge Activity: Return to Normal Activity Call your doctor if you observe: Fever of 101 or Higher, Shortness of breath, Dizziness, Fainting spells Home Medications: Medications to take at Discharge ProMETHAzine [Phenergan] 25 mg PO Q6H PRN PRN #10 tab 05/20/17 Following Prescrptions Were Given to Patient: ProMETHAzine [Phenergan] 25 mg PO Q6H PRN PRN #10 tab PRN Reason: Nausea/Vomiting Primary Care Physician: Care Physician,No Primary [Primary Care Provider] - Disposition: Home Minutes spent on discharge:: 30 Patient Condition:: Stable Meaningful Use Info Meaningful Use Diagnoses (Choose all that apply): None applicable Code Visit Inpatient E&M: 54745 Disch Hosp
[2017-05-20] MEDS: 0.9% Normal Saline 1,000 ML 999 ML IV ×2 (10:28→11:38)
[2017-05-20] MEDS: Famotidine 20 MG Tablet PO (10:29)
--- NOTE | 2017-05-20 10:32 | DS.PCM_ITS ---
Discharge Date and Diagnosis - Problem List Patient Problems: Active and Suspected Problems Bradycardia (Acute) Hypotension (Acute) Opioid use with withdrawal (Acute) Date of Admission: 05/17/17 Date of Discharge: 05/20/17 - Primary Discharge Diagnosis Active and Suspected Problems acute opiate withdrawal Bradycardia (Acute) Hypotension (Acute) - Secondary Discharge Diagnosis Chronic Problems Heroin addiction (Chronic) Nicotine dependence (Chronic) Hospital Course and Treatment Imaging Results: Laboratory Tests 05/17/17 05/17/17 05/18/17 16:11 16:11 06:40 WBC 5.7 5.2 RBC 3.57 L 3.93 L Hgb 11.9 L 12.8 Hct 35.6 L 38.8 MCV 99.7 H 98.7 MCH 33.3 H 32.6 H MCHC 33.4 33.0 RDW 13.4 13.5 RDW Differential 48.2 H 48.6 H Plt Count 141 L 156 MPV 11.9 12.2 H Immature Gran % (Auto) 0.200 0.000 Neut % (Auto) 29.4 L 51.1 Lymph % (Auto) 52.1 H 37.8 [place] % (Auto) 8.3 6.4 Eos % (Auto) 7.9 H 3.3 Baso % (Auto) 2.1 H 1.4 H Absolute Neuts (auto) 1.7 L 2.6 Absolute Lymphs (auto) 2.96 1.95 Total Counted Not Reportable Not Reportable Sodium 140 Potassium 3.5 Chloride 105 Carbon Dioxide 30.0 Anion Gap 5 BUN 10 Creatinine 0.66 Estim Creat Clear Calc 104.79 Est GFR (MDRD) Af Amer 131 Est GFR (MDRD) Non-Af 108 BUN/Creatinine Ratio 15.2 Glucose 110 Calcium 8.5 Total Bilirubin 0.30 AST 23 ALT 22 Alkaline Phosphatase 74 Total Protein 6.6 Albumin 3.2 L Globulin 3.4 Albumin/Globulin Ratio 0.9 Hepatitis A IgM Ab Hepatitis A Ab Total Hep Bs Antigen Hep B Core Total Ab Hep B Core IgM Ab Hepatitis C Ab Confirm Hepatitis C Comment HIV 1&2 Ag/Ab, 4th Gen 05/18/17 05/18/17 05/19/17 06:40 12:55 07:07 WBC 6.3 RBC 3.88 L Hgb 12.6 Hct 38.2 MCV 98.5 MCH 32.5 H MCHC 33.0 RDW 13.5 RDW Differential 48.1 H Plt Count 158 MPV 12.8 H Immature Gran % (Auto) 0.000 Neut % (Auto) 55.9 Lymph % (Auto) 35.1 [place] % (Auto) 6.2 Eos % (Auto) 1.8 Baso % (Auto) 1.0 Absolute Neuts (auto) 3.5 Absolute Lymphs (auto) 2.20 Total Counted Not Reportable Sodium 142 Potassium 4.0 Chloride 112 H Carbon Dioxide 25.0 Anion Gap 5 BUN 7 Creatinine 0.68 Estim Creat Clear Calc 101.70 Est GFR (MDRD) Af Amer 126 Est GFR (MDRD) Non-Af 104 BUN/Creatinine Ratio 10.2 Glucose 105 Calcium 9.0 Total Bilirubin AST ALT Alkaline Phosphatase Total Protein Albumin Globulin Albumin/Globulin Ratio Hepatitis A IgM Ab Negative Hepatitis A Ab Total Negative Hep Bs Antigen Negative Hep B Core Total Ab Negative Hep B Core IgM Ab Negative Hepatitis C Ab Confirm <0.1 Hepatitis C Comment Comment HIV 1&2 Ag/Ab, 4th Gen Non Reactive 05/19/17 07:07 WBC RBC Hgb Hct MCV MCH MCHC RDW RDW Differential Plt Count MPV Immature Gran % (Auto) Neut % (Auto) Lymph % (Auto) [place] % (Auto) Eos % (Auto) Baso % (Auto) Absolute Neuts (auto) Absolute Lymphs (auto) Total Counted Sodium 142 Potassium 3.7 Chloride 110 H Carbon Dioxide 25.0 Anion Gap 7 BUN 14 Creatinine 0.75 Estim Creat Clear Calc 92.21 Est GFR (MDRD) Af Amer 113 Est GFR (MDRD) Non-Af 93 BUN/Creatinine Ratio 18.6 Glucose 96 Calcium 8.8 Total Bilirubin AST ALT Alkaline Phosphatase Total Protein Albumin Globulin Albumin/Globulin Ratio Hepatitis A IgM Ab Hepatitis A Ab Total Hep Bs Antigen Hep B Core Total Ab Hep B Core IgM Ab Hepatitis C Ab Confirm Hepatitis C Comment HIV 1&2 Ag/Ab, 4th Gen none Operations: None Procedures: None Summary of Care Provided: Patient is a 37-year-old female with a history of narcotic abuse who presented to the [facility] office requesting admission for medical stabilization for opiate withdrawal. Admitted to using 2 g of IV heroin a day. Stated her last use was 48 hours prior to presenting to the [facility] office. She complained of abdominal cramping, tremulousness and diarrhea. She had been admitted to [facility] in September of 2016 for opiate addiction/medical stabilization for opiate withdrawal. She was clean for 3 months after the September admission to [facility]. She went back to regular using when she thought she could use it only once. Significant other is also a heroin addict. He has been through the [facility] program at [facility] and left AMA. He was discharged from [facility] detox program on 05/17/17. CBC and CMP were unremarkable. LFTs were within normal limits. Hepatitis panel and the HIV were negative. She did not eat or drink much in the hospital and states she has no appetite when going though withdrawal. She had IV fluids on the day of admission for lightheadedness and a low BP. BP and HR after fluids were WNL. She was given a prescription for Phenergan at [place] to use as needed for nausea and vomiting. she has an appt scheduled for Sunday morning for intake. This note was generated with [employer] dictation software. It may contain incorrect words, spelling, and punctuation that were not noted in checking the note before signing. Discharge Activity: Return to Normal Activity Call your doctor if you observe: Fever of 101 or Higher, Shortness of breath, Dizziness, Fainting spells Home Medications: Medications to take at Discharge ProMETHAzine [Phenergan] 25 mg PO Q6H PRN PRN #10 tab 05/20/17 Following Prescrptions Were Given to Patient: ProMETHAzine [Phenergan] 25 mg PO Q6H PRN PRN #10 tab PRN Reason: Nausea/Vomiting Primary Care Physician: Care Physician,No Primary [Primary Care Provider] - Disposition: Home Minutes spent on discharge:: 30 Patient Condition:: Stable Meaningful Use Info Meaningful Use Diagnoses (Choose all that apply): None applicable Code Visit Inpatient E&M: 02005 Disch Hosp
[2017-05-20 10:41] LABS: Thyroid Stim Hormone (TSH) 0.15 uIU/mL (0.358-3.74)
== END 2017-05-20 12:50 | disposition home or self-care (01) | DRG 435 ==
PROVIDERS: Admitting Provider Hospitalist; Visit Provider Internal Medicine
DX: F11.23 Opioid dependence with withdrawal (principal); F17.210 Nicotine dependence, cigarettes, uncomplicated; G25.81 Restless legs syndrome; R00.1 Bradycardia, unspecified
CPT/HCPCS: 36415; 80048; 80053; 84443; 85025; 86703; 86704; 86705; 86706; 86708; 86709; 86803; 87340; 97802; 99218; 99406; J7030; A4216; G0378; G0379